=== PATIENT | female | born 1955 | race Caucasian/White ===

== ENCOUNTER 2017-04-27 17:33 | Emergency (ER) | payer BC, SELFPAY ==
[2017-04-27 17:35] VITALS: BP 190/109; PULSE 80; RESP 20; TEMP 35.8; O2SAT 98; BMI 45.9
--- NOTE | 2017-04-27 17:50 | CT_ITS ---
STUDY: CT BRAIN WITHOUT CONTRAST REASON FOR EXAM: Female, 61 years old. Headache RADIATION DOSAGE (If Supplied By Facility): CTDIvol = ( 44.99 ) mGy, DLP = ( 745.49 ) mGycm TECHNIQUE: Transaxial CT imaging of the brain was performed without administration of intravenous contrast material. Individualized dose optimization techniques were used for this CT. COMPARISON: None. FINDINGS: There is no acute bleed or infarct. There are normal white matter tracts. The ventricles are normal in configuration. There is no hydrocephalus. The visualized paranasal sinuses are clear. The mastoid air cells are well aerated. There is no skull fracture. CT/Brain/Head without Contrast IMPRESSION: No acute intracranial abnormality. Electronically Signed: Williams Curiel, at 18:45 EDT Tel , Service support ,
--- NOTE | 2017-04-27 17:57 | ED.DCSUM_ITS ---
- ER Visit Summary Date of Service: 04/27/17 Chief Complaint: Headache History of Present Illness: The patient is a 61 F Zentz to the emergency department with headache. The patient states that over the past 5 days, she has had a dull progressive pain. She states it started in the back of her neck. It was mostly in the trapezius muscles. Since then, it radiated up to the base of her skull. Over the past 2 days, it has involved both sides of her jaw. She saw her primary care today. It was thought that she may have TMJ. The patient was ordered muscle relaxers. She states she was on the way to the pharmacy to pick them up with her headache got worse. She describes a sharp stabbing pain at the top of her head that would come and go. She was also mildly nauseated. She denies any visual change. She denies any eye pain. She has had no pain with chewing. She denies any weight loss. She denies any other systemic symptoms. Physical Examination: Well-appearing patient is in no acute distress. Head is normocephalic, atraumatic. Pupils equal round reactive, extraocular muscles intact. There is no temporal artery tenderness. There is no vesicular rash. Neck supple. Kernig's and Brudzinski's are negative. Heart regular rate and rhythm. Lungs clear, chest nontender. Abdomen soft, nontender, nondistended. Neuro exam displays no focal or lateralizing deficit. 2+ symmetric lower extremity reflexes. No clonus. No ataxia or gait abnormality. Test Results: [] Emergency Department Course and Treatment: The patient has a benign neurologic examination. Her headache does seem more consistent with an occipital neuralgia given with the pain started in the radiation. She is not meningitic. She is not encephalopathic. However, she has never had headache like this I did obtain a head CT. This is unremarkable. The headache was not sudden onset. There was no thunderclap. It was gradual and progressive. I do not feel this represents subarachnoid. The patient was given Benadryl and Zofran. On reevaluation she is resting comfortably. At this time, due to the patient is safe for discharge. I will prescribe her antiemetics. She will take her prescribed antispasmodics. If she has worsening symptoms, she will return. Treatment Plan: [] Disposition: Discharge Impression: 1. Headache This note was generated with [employer] dictation software. It may contain incorrect words, spelling, and punctuation that were not noted in review of the chart prior to signing ED Disposition - Plan for ED Patient: Chief Complaint: Headache Instructions: ED Cephalgia Unspecified Prescriptions: Ondansetron [Zofran Odt] 4 mg PO Q8H PRN PRN #10 tab PRN Reason: Nausea Referrals: Edgar Lazo MD [Primary Care Provider] -
[2017-04-27] MEDS: DiphenhydrAMINE 50 MG/ML Syringe 25 MG IV (18:00)
[2017-04-27] MEDS: Ondansetron 4 MG/2 ML Vial IV (18:00)
[2017-04-27] MEDS: 0.9% Normal Saline 1,000 ML 150 ML IV (18:01)
[2017-04-27 19:26] VITALS: BP 136/90; PULSE 68; RESP 16; O2SAT 96
== END 2017-04-27 19:28 | disposition home or self-care (01) ==
PROVIDERS: Emergency Provider Emergency Medicine; Family Provider Family Medicine; PCP Family Medicine
DX: R51 Headache (principal); I10 Essential (primary) hypertension; E78.00 Pure hypercholesterolemia, unspecified; Z79.899 Other long term (current) drug therapy
CPT/HCPCS: 70450; 96361; 96374; 96375; 99283; J7030; J2405

== ENCOUNTER 2018-04-30 16:48 | Observation (INO) | payer BC, SELFPAY ==
[2018-03-07 15:45] VITALS: BMI 45.0
[2018-04-25 15:21] VITALS: BMI 45.0
--- NOTE | 2018-04-25 15:59 | EKG12_ITS ---
Test Reason : PRE OP Blood Pressure : / mmHG Vent. Rate : 073 BPM Atrial Rate : 073 BPM P-R Int : 158 ms QRS Dur : 090 ms QT Int : 388 ms P-R-T Axes : 060 -05 038 degrees QTc Int : 427 ms Normal sinus rhythm Normal ECG When compared with ECG of 23-MAR-2015 21:43, No significant change was found Confirmed by ESTELA EARL, SHANTEL ([id number]), content editor ALIYA HOLLINS ([id number]) on 04/29/2018 1:11:57 PM Referred By: Allen Evans Confirmed By:SHANTEL PALMER MD
[2018-04-25 17:12] LABS: Hematocrit 44.4 % (37-47); Hemoglobin 14.7 g/dl (12.0-15.0); Mean Corp Hgb Conc 33.1 g/gl (32-36); Mean Corpuscular Hgb 31.2 pg (27.0-32.0); Mean Corpuscular Volume 94.3 fL (81-99); Mean Platelet Vol. 9.7 fl (6.2-12.0); Platelet Count 248 K/mm3 (150-450); RBC Distribution Width CV 12.6 % (11.6-14.6); RBC Distribution Width SD 42.4 fl (35.1-43.9); Red Blood Count 4.71 M/mm3 (4.2-5.4); White Blood Count 7.6 K/mm3 (4.4-11.0)
[2018-04-25 17:13] LABS: Scan Indicated on CBC? Y/N NO
[2018-04-25 17:21] LABS: International Normalized Ratio 0.9; Prothrombin Time (Protime)PT. 12.1 SECONDS (11.7-14.9)
[2018-04-25 17:22] LABS: Partial Thromboplast Time 28.7 Seconds (24.1-36.2)
[2018-04-25 17:34] LABS: AST(SGOT) 20 U/L (15-37); Alanine Aminotransfer ALT/SGPT 29 U/L (13-56); Albumin, Serum 3.5 g/dL (3.2-5.0); Alkaline Phosphatase 117 U/L (45-117); Bilirubin, Direct 0.13 mg/dL (0.00-0.30); Globulin 3.3 g/dL (2.2-4.2); Protein, Total 6.8 g/dL (6.4-8.2)
--- NOTE | 2018-04-29 17:57 | HP.PCM_ITS ---
History and Physical Date of Admission: 04/30/18 HISTORY OF PRESENT ILLNESS 62 year old woman presents with complaints of bilateral macromastia as well as associated painful symptomatology of neck pain, thoracic back pain, bilateral shoulder pain from shoulder grooving from the weight of her breasts on her bra straps, and inframammary intertrigo for which she uses ointment for relief. She denies any trauma to her breasts. Denies any nipple discharge. She has seen a Chiropractor for her back pain in the past without symptomatic relief. Her last mammogram was in 11/22 and it showed scattered fibroglandular elements in both breasts. There were no significant masses, calcifications, or other findings are seen in either breast. She does have a family history of breast cancer. She is in a weight loss program where she has lost 12 lbs in the recent past without symptomatic relief. A letter was sent to her insurance carrier and medical approval has been obtained. Her surgery is scheduled for April 30, 2018. She presents at this time for a preop visit. PAST MEDICAL HISTORY Anxiety Arthritis Gallstones High cholesterol Seasonal allergies High blood pressure PAST SURGICAL HISTORY appendectomy section knee replacement procedure of left knee knee replacement procedure of right knee tonsillectomy ALLERGIES latex MYCINS MEDICATIONS Atorvastatin Calcium [Lipitor] Lisinopril/Hydrochlorothiazide [Lisinopril-Hctz 20-25 mg Tab] diltiazem CD Glucosam/Kelby-Msm1/C/Shorty/Bosw [Osteo Bi-Flex Caplet] L.acidoph,Paracasei, B.lactis [Probiotic] FAMILY HISTORY Aunt - Breast cancer, Diabetes Sister - Epilepsy, Skin cancer Mother - Hypertension, High cholesterol SOCIAL HISTORY Smoking Status: Never smoker alcohol intake: never substance use type: does not use REVIEW OF SYSTEMS General - Denies fever, fatigue, and weight loss. Eyes - Denies cataracts and glaucoma. ENT - Denies nasal congestion and sore throat. Endocrine - Denies excessive thirst and urination. Skin - Denies suspicious lesions and skin cancer. Musculoskeletal - Denies joint pain, weakness of muscles and joints, and arthritis. Has joint stiffness and neck pain and back pain. Her neck and back pain involve cervical and thoracic area. Neuro - Denies headaches. Cardiovascular - Denies chest pain, fatigue, and shortness of breath with exertion. Psych - Denies anxiety and depression. Respiratory - Denies chronic cough and shortness of breath. Gastrointestinal - Denies nausea, vomiting, diarrhea, and constipation. Hematologic - Denies abnormal bruising and bleeding. Genitourinary - Denies hematuria and urinary frequency. PHYSICAL EXAMINATION General - Alert and oriented. Patient's bra size is 46 DDD. HEENT - PERRL. EOMI. Throat is clear. Neck - Supple. No bony tenderness. There is some pericervical soft tissue tenderness. Lungs- Clear to auscultation. Heart - Regular rate and rhythm. Breasts - Patient has bilateral macromastia. No breast masses palpable. No axillary adenopathy noted. Distance from midclavicular line on the left to the nipple is 42 cm and from the nipple to the inframammary fold is 12 cm. Distance from midclavicular line on the right to the nipple is 42 cm and from nipple to the inframammary fold is 12 cm. Nipple areolar complex diameter is 9 cm bilaterally. No active inframammary intertrigo noted at this time. Abdomen - Soft and non distended. Back - No bony tenderness noted. There is perivertebral soft tissue tenderness in the upper thoracic area. Extremities - FROM. No axillary adenopathy. Radial pulses are palpable. There is some bilateral shoulder tenderness with shoulder grooving from the weight of her breasts on her bra straps. Neuro - CN II-XII grossly intact. Psych - Normal and mood and affect. ASSESSMENT 1. Bilateral macromastia. 2. Neck pain. 3. Thoracic back pain. 4. Bilateral shoulder pain from shoulder grooving from the weight of the breasts on her bra straps. 5. Inframammary intertrigo. 6. Recent weight loss. 7. Family history of breast cancer. PLAN Discussed with the patient the procedure of breast reduction mammoplasty. I feel this procedure would be beneficial in this patient as it would help relieve her painful symptomatology. She recently had a mammogram in 11/22 at the [facility] which was ok. I would remove approximately 750 g of breast tissue per side. We will send the tissue to pathology for analysis to rule out carcinoma. Discussed with patient the extent of scarring for this procedure. The biggest risk for wound healing problems is the T-zone area. Usually wound care and sometimes antibiotics are necessary for healing in this area. She would have drains in for a few days depending on the amount of tissue that is removed. She will be on antibiotics until the drains are removed. In general, the final breast size ranges from a high B to a low C cup. In this patient, due to her large size, it will be more in the range of a full C cup. Patient voices understanding. Surgery will be done under general anesthesia with a surgical observation overnight stay in the hospital. A letter was sent to her insurance carrier and medical approval has been obtained. Patient was informed of the risks and complications of the procedure including alternatives to surgery. These were discussed with her personally. She voices understanding and wishes to proceed. Some of the risks and complications were included in a form from the [employer]. Her questions were answered personally and to her satisfaction and her consent was signed. Her surgery is scheduled for April 30, 2018.
[2018-04-30] VITALS (15 sets, daily range): BP systolic 82–136; BP diastolic 54–91; PULSE 59–90; RESP 14–18; TEMP 35.7–36.9; O2SAT 92–98; BMI 43.3; BMI 42.5
--- NOTE | 2018-04-30 09:15 | BR_PTH ---
PATIENT: ALEKS RALPH LOC: MS3 U#:[id number] AGE/SX: 62/F [place] [facility] [place]: Dr. Allen Evans MD : [id number] BED: 1 DIS: 05/01/2018 SPEC #: [id number] RECD: 04/30/18 16:12 STATUS: FELY HICKEYJohn #: [id number] MALORIE: 04/30/18 09:[address]: Allen Evans DEPT: SURGICAL PATHOLOGY RECD BY: John Dixon ENTERED: 05/01/18 12:40 SP TYPE: MAMOPLASTY OTHR DR: Dr. Edgar Lazo MD Tissues: A - Right breast, NOS B - Left breast, NOS Procedures: Surgery Specimen Level IV HEADER OPERATION: Breast reduction mammoplasty PRE-OP DIAGNOSIS: Bilateral macromastia TISSUE SUBMITTED: A - Right breast tissue, B - Left breast tissue MICROSCOPIC DIAGNOSIS A. Right breast tissue, breast reduction mammoplasty: Benign breast tissue (1369 gm). Skin, no pathologic diagnosis. B. Left breast tissue, breast reduction mammoplasty: Benign breast tissue (1257 gm). Skin, no pathologic diagnosis. FADY:kindra 05/03/18 MICROSCOPIC DESCRIPTION Slides are reviewed. GROSS DESCRIPTION A - Received in fixative is one container labeled with the patient's name and designated right breast tissue. The specimen consists of multiple irregular fragments of fibroadipose tissue with a few of the pieces showing chaudhry-white skin weighing in aggregate 1369 gm and that in aggregate measure 26 x 26 x 8 cm. No skin lesion is identified. Sections reveal yellow adipose cut surfaces mixed with scant fibrous areas. Field Engineer sections are submitted in six cassettes. Cassette 1 also contains the skin. Sections will be submitted after overnight fixation. / FADY:kindra 05/01/18 B - Received in fixative is one container labeled with the patient's name and designated left breast tissue. The specimen consists of multiple irregular fragments of fibroadipose tissue with a few of the pieces showing chaudhry-white skin weighing in aggregate 1257 gm and that in aggregate measure 26 x 22 x 8 cm. No skin lesion is identified. Sections reveal yellow adipose cut surfaces mixed with scant fibrous areas. Field Engineer sections are submitted in six cassettes. Cassette 1 also contains the skin. Sections will be submitted after overnight fixation. / FADY:kindra 05/01/18 TC:5 CPT: 24446 x2
[2018-04-30] MEDS: Cefazolin 2 GM in 0.9% Normal Saline 100 ML IV (09:30)
--- NOTE | 2018-04-30 16:45 | OP.PCM_ITS ---
Report of Operation Date of Procedure: 04/30/18 Pre-Operative Diagnosis: 1. Bilateral macromastia. 2. Neck pain. 3. T horacic back pain. 4. Bilateral shoulder pain from shoulder grooving from the weight of the breasts on her bra straps. 5. Inframammary intertrigo. 6. Recent weight loss. 7. Family history of breast cancer. Post-Operative Diagnosis: Same. Surgery/Procedure Performed:: Bilateral breast reduction mammaplasty. Description of Surgical Findings:: 62 year old woman presents with complaints of bilateral macromastia as well as associated painful symptomatology of neck pain, thoracic back pain, bilateral shoulder pain from shoulder grooving from the weight of her breasts on her bra straps, and inframammary intertrigo for which she uses ointment for relief. She denies any trauma to her breasts. Denies any nipple discharge. She has seen a Chiropractor for her back pain in the past without symptomatic relief. Her last mammogram was in 11/22 and it showed scattered fibroglandular elements in both breasts. There were no significant masses, calcifications, or other findings are seen in either breast. She does have a family history of breast cancer. She is in a weight loss program where she has lost 12 lbs in the recent past without symptomatic relief. A letter was sent to her insurance carrier and medical approval has been obtained. Patient was informed of the risks and complications of the procedure including alternatives to surgery. These were discussed with the patient personally. Patient voices understanding and wishes to proceed. Some of the risks and complications were included in a form from the [employer]. IV Fluids - 3800 ml. Urine Output - 600 ml. Tissue removed from the left breast - 1188 grams. Tissue removed from the right breast - 1206 grams. I used Honey absorbable hemostat, (I used 4 vials, 2 in each breast). Reference Number - [id number]. Lot Number - [id number] Expiration - February 01, 2023, (2 vials in right breast). Reference Number - [id number]. Lot Number - [id number]. Expiration - September 01, 2022, (left breast). Reference Number - [id number]. Lot Number - [id number]. Expiration - November 02, 2022, (left breast). stitcher operator: Nikki Middleton. Type of Anesthesia:: General Specimen's removed: 1. Left breast tissue to Pathology. 2. Right breast tissue to Pathology. Drains: Douglas x2 (one in each breast). Estimated Blood Loss (mL): 250 ml. Fluids Replaced: 4400 ml (IV Fluids 3800 ml, Urine Output 600 ml). Description of Procedure: The patient was taken to the operating room and in the sitting position, preoperative markings were made. The sternum midline was marked down to the umbilicus. The inframammary folds were marked bilaterally. The midclavicular line was then marked down to the nipple, then from the nipple to the inframammary fold. The inframammary fold was then superimposed on the midclavicular line and I made a point 1 cm below that to be the new position of the nipple-areolar complex. 7 cm lines were then drawn divergent from that point to encompass the nipple-areolar complex. The distance between the divergent lines was 10 cm. The patient was then placed in the supine position and placed under general anesthesia and her breasts were prepped and draped in usual fashion. SCDs were placed for DVT prophylaxis. Perioperative antibiotics were given intravenously. A Page catheter was also placed. I then tattooed the preoperative markings with methylene blue and 25-gauge needle. I also tattooed the 12 o'clock position of the nipple-areolar complex to help with positioning of the nipple-areolar complex when it is brought through the keyhole incision at the end of the procedure to minimize kinking and twisting of the central breast mound pedicle. I then jan straight lines down from the lines drawn divergent around the nipple-areolar complex down to the inframammary fold. The width of the pedicle is 9 cm. I then used a 42 mm circular template for a new size of the nipple-areolar complex. The central markings were infiltrated with Xylocaine and epinephrine. The central skin was then deepithelialized. I started on the right side first and then went to the left side. I then mobilized medial and lateral breast flaps at the level of Susan's fascia down to within a centimeter of the chest wall. This was met in the midline of the breast with dissection at the level of Susan's fascia down to within a centimeter of the chest wall. Once the central breast mound pedicle was from the skin envelope, the reduction was then begun. Most of the tissue was removed from the superior aspect of the breast and the lateral aspect of the breast. I then sutured the leading edge of the medial and lateral breast flaps to the midline of the inframammary fold with 2-0 Vicryl suture. The vertical incision was approximated using surgical clips. The excess tissue from the medial and lateral breast flaps were excised and the horizontal incision was approximated using surgical clips. The patient was then placed in a sitting position. Using a vertical limb length of 5 cm, I jan the new position of the new nipple-areolar complexes on both breasts. They were in good position on the central aspect of the breast mound. Good symmetry was noted between the left breast and the right breast. Good shape and contour and projection was noted and appeared clinically to be a full C cup. The patient was then placed back in the supine position and the surgical clips were removed. The breast wounds were then irrigated with saline. Hemostasis was obtained using electrocautery. The tissue removed from the left breast was 1188 grams. The tissue removed from the right breast was 1206 grams. The tissue that was removed from the breasts was sent to Pathology for analysis to rule out carcinoma. After hemostasis was obtained using electrocautery, I then sprayed Honey absorbable hemostat into both breast wounds. I used two vials for each side. I then placed a size 15 Douglas drain into each breast wound to be brought through the lateral aspect of the horizontal incision. I then closed the breast wounds by first approximating the leading edge of the medial and lateral breast flaps to the midline of the inframammary fold with 2-0 Vicryl suture. The deep dermis and subcutaneous tissue of the vertical incision and the horizontal incisions were approximated using 3-0 Monocryl interrupted sutures. The horizontal incision was then approximated using 4-0 V-Loc unidirectional barbed running subcuticular suture. I also placed a few 4-0 Prolene vertical mattress interrupted sutures at the level of the Tzone. The vertical incision was then closed on the skin with 4-0 Prolene interrupted sutures. With a vertical limb length of 5 cm, I jan a circular incision where the nipple-areolar complex would be brought through this keyhole incision. Incisions were made and the nipple areolar complex was brought through the keyhole incision. The 12 o'clock position of the nipple-areolar complex was lined up with the 12 o'clock position of the breast skin. The nipple-areolar complex was secured to the breast skin using 3-0 Monocryl interrupted sutures for deep dermis and subcutaneous tissue. The skin was approximated using 4-0 Prolene simple interrupted sutures. This was then covered with Histoacryl skin tissue adhesive. I sutured the drain to the skin using 3-0 nylon suture. At the end of procedure, the breasts were soft with no evidence of vascular compromise. No evidence of hematomas were noted. The nipples were viable. I then dressed the breasts with a Kerlix gauze and a surgical bra. The patient tolerated the procedure well and will be sent to the recovery room in satisfactory condition. She will be admitted for surgical observation overnight stay. She will go home tomorrow once she is tolerating oral pain medication. I will remove the drains in a few days. She will be maintained on antibiotics until the drains are removed. She will keep her head elevated during the initial postoperative period. She will be maintained on a lifting restriction and keep her head elevated during the initial postoperative period. Postoperatively, she may get a compression sports bra as well. She will have the Page removed in the morning. She will be sent home on an tibiotics and pain medicine for a few days. Sutures will be removed in 1-2 weeks. Grafts/Implants Used: None. - Complications None. - Admit VTE Documentation VTE Present on Admission: No VTE Mechan Device Prophylaxis: SCD's VTE Pharm Prophylaxis ordered?: Yes Code Visit Surgery Charges CPT - 46153 ICD-10 - N62, M54.2, M54.6, M25.519, L30.4, Z80.3, R63.4 38112-21 N62, M54.2, M54.6, M25.519, L30.4, Z80.3, R63.4
[2018-04-30] MEDS: Lactated Ringers 500 ML 999 ML IV (18:40)
[2018-04-30] MEDS: Lactated Ringers 1,000 ML 100 ML IV (19:44)
[2018-04-30] MEDS: HYDROmorphone 1 MG/ML Syringe IV (20:10)
[2018-04-30] MEDS: Atorvastatin Calcium 10 MG Tablet PO (21:13)
[2018-04-30] MEDS: Docusate Sodium 100 MG Capsule PO (21:13)
[2018-04-30] MEDS: Cefazolin 1 GM/50 ML BAG IV (21:22)
--- NOTE | 2018-04-30 22:00 | NURSING ---
PT UP TO CHAIR. GAIT STEADY. PT GIVEN IS . ENCOURAGE TO USE EVERY HOUR.
[2018-05-01 02:40] VITALS: BP 101/62; PULSE 85; RESP 17; TEMP 36.7; O2SAT 95
[2018-05-01] MEDS: oxyCODONE 5 MG Tablet 10 MG PO (02:56)
[2018-05-01] MEDS: Cefazolin 1 GM/50 ML BAG IV ×2 (05:09→13:36)
[2018-05-01] MEDS: Enoxaparin 40 MG/0.4 ML Syringe SC (05:09)
[2018-05-01] MEDS: Lactated Ringers 1,000 ML 100 ML IV (05:12)
[2018-05-01 06:14] LABS: Hematocrit 36.6 % (37-47); Hemoglobin 11.6 g/dl (12.0-15.0); Mean Corp Hgb Conc 31.7 g/gl (32-36); Mean Corpuscular Volume 97.9 fL (81-99); Mean Platelet Vol. 9.6 fl (6.2-12.0); Platelet Count 245 K/mm3 (150-450); RBC Distribution Width CV 12.7 % (11.6-14.6); RBC Distribution Width SD 43.4 fl (35.1-43.9); Red Blood Count 3.74 M/mm3 (4.2-5.4); White Blood Count 18.2 K/mm3 (4.4-11.0)
[2018-05-01 06:19] LABS: Scan Indicated on CBC? Y/N NO
[2018-05-01 06:37] LABS: Anion Gap 7 (5-15); BUN 15 mg/dL (7-18); BUN/Creat Ratio 18.9 RATIO (10-20); Chloride 103 mmol/L (98-107); Creatinine, Serum 0.79 mg/dL (0.55-1.02); EST Glomerular Filtration Rate 79 mL/min (>60); Est Glom Filt Rate - Afr Amer 95 mL/min (>60); Estimated Creatinine Clearance 62.64 ml/min; Glucose 195 mg/dL (74-106); Potassium 3.7 mmol/L (3.5-5.1); Prealbumin 15.3 mg/dL (20.0-40.0); Sodium Level 139 mmol/L (136-145)
[2018-05-01 08:11] VITALS: BP 111/59; PULSE 88; RESP 14; TEMP 36.6; O2SAT 94
[2018-05-01 08:45] VITALS: RESP 14; O2SAT 94
[2018-05-01] MEDS: dilTIAZem CD 180 MG Capsule PO (09:53)
[2018-05-01] MEDS: Docusate Sodium 100 MG Capsule PO (09:53)
[2018-05-01] MEDS: hydroCHLOROthiazide 25 MG Tablet PO (09:53)
[2018-05-01] MEDS: Lisinopril 20 MG Tablet PO (09:53)
[2018-05-01] MEDS: Acetaminophen 325 MG Tablet 650 MG PO (09:57)
--- NOTE | 2018-05-01 13:37 | PCM.PN.SRG ---
Subjective: Postop #1 Patient is resting comfortably. - Physical Exam General: Alert, Oriented x3 HEENT: PERRLA, EOMI Oral: Moist Mucosa Neck: Supple Lungs: Clear to auscultation Cardiovascular: Regular rate, Regular Rhythm Abdomen: Soft, Non-Distended Skin: Incision - Breast incisions dry and intact. Breasts are soft and symmetrical. Nipples are viable. No clinical evidence of hematoma. Neurological: Cranial nerves II-XII grossly intact Psych/Mental Status: Normal Affect, Appropriate Vital Signs Temp Pulse Resp BP Pulse Ox 97.8 F 88 14 111/59 L 94 05/01/18 08:11 05/01/18 08:11 05/01/18 08:45 05/01/18 08:11 05/01/18 08:45 Oxygen Flow Rate (L/min) 2 Oxygen Delivery Method Room Air Weight: 240 lb Body Mass Index (BMI) 42.5 Intake and Output for Last 24 Hours 04/29/18 04/30/18 05/01/18 23:59 23:59 23:59 Intake Total 4900 / 4900 4215 / 4215 Output Total 690 / 690 2260 / 2260 Balance 4210 / 4210 5 / 1954 Drainage 30 ml yesterday, 110 ml today. Laboratory Tests Past 24 Hrs 05/01/18 05/01/18 05:15 05:15 WBC 18.2 H RBC 3.74 L Hgb 11.6 L Hct 36.6 L MCV 97.9 MCH 31.0 MCHC 31.7 L RDW 12.7 RDW Differential 43.4 Plt Count 245 MPV 9.6 Sodium 139 Potassium 3.7 Chloride 103 Carbon Dioxide 29.0 Anion Gap 7 BUN 15 Creatinine 0.79 Estim Creat Clear Calc 62.64 Est GFR (MDRD) Af Amer 95 Est GFR (MDRD) Non-Af 79 BUN/Creatinine Ratio 18.9 Glucose 195 H Calcium 8.0 L Prealbumin 15.3 L Medical Necessity - Tobacco Use Smoking Status: Never smoker Tobacco Use: Non-smoker Assessment/Plan All Active Problems (Last Updated 02/12/18 @ 08:57 by Alina Adams) Recent weight loss (Acute) 1. Bilateral macromastia. 2. Neck pain. 3. Thoracic back pain. 4. Bilateral shoulder pain from shoulder grooving from the weight of the breasts on her bra straps. 5. Inframammary intertrigo. 6. Recent weight loss. 7. Family history of breast cancer. 8. s/p bilateral breast reduction mammaplasty. Patient is resting comfortably. She is tolerating po analgesia. Breast incisions are dry and intact. Breasts are soft and symmetrical. Nipples are viable. No clinical evidence of hematoma. WBC was 18.2. Probably surgery related. She is afebrile. The surgical site shows no evidence of infection. She has no breathing complaints and no voiding complaints. Will repeat the CBC in a week as an outpatient. Prealbumin was 15.3. Encourage nutritional supplementation with protein to help the healing process. Discharge home today. Continue head elevation and lifting restriction. Will remove the drains in the office. Wrote script for Cefadroxil until the drains are removed. Wrote script for Percocet for pain (50 tabs). Wrote script for Colace for constipation (30 tabs). Followup office Sunday05/06/18.
--- NOTE | 2018-05-01 14:03 | DCINST_ITS ---
You will use the following diet at home:: No restrictions Discharge Activity: May not drive while taking narcotic pain medications., May Shower - after the drains are removed., - - keep head elevated. no heavy lifting. May shower in (days): 5 - after the drains are removed. May resume sexual activity in: 10-14 days Weight Bearing Status: Weight bearing as tolerated Lifting Restrictions: 20 lbs. Keep extremity elevated above heart level: - - elevate head. Call your doctor if your incision/area has: Continuous Slow Oozing, Sudden Increased Bleeding, Increased Pain/ Swelling, Increased Redness, Foul Smelling Discharge, Swelling at the incision site, - - black nipples. Call your doctor if you observe: Fever of 101 or Higher, Coldness, Increased Pain, Shortness of breath, Chest pain, Calf discomfort, Uncontrolled pain Suture Line Care: - - dry dressnigs daily. Change Dressing in (Days):: 1 - dry dressings daily. Cleanse incision/area with: - - patient may take a shower after her drains are removed. Drain: Suction - gracie drain x2 to bulb suction. empty and record output daily. Allergies/Adverse Reactions: Allergies latex Allergy (Mild, Verified 04/25/18 15:19) ALLERGY MYCINS Adverse Reaction (Uncoded 04/25/18 15:19) Other YEAST INFECTIONS Medications to take at Discharge Atorvastatin Calcium [Lipitor] 10 mg PO QHS 03/23/15 Lisinopril/Hydrochlorothiazide [Lisinopril-Hctz 20-25 mg Tab] 1 tab PO DAILY 03/23/15 diltiazem CD 180 mg capsule,extended release 24 hr 180 mg PO DAILY 02/12/18 Glucosam/Kelby-Msm1/C/Shorty/Bosw [Osteo Bi-Flex Caplet] 1 each PO DAILY 04/23/18 L.acidoph,Paracasei, B.lactis [Probiotic] 1 each PO DAILY 04/23/18 Cefadroxil [Duricef] 500 mg PO BID #10 cap 05/01/18 Docusate Sodium [Colace] 100 mg PO BID #30 cap 05/01/18 Hydrochlorothiazide [Hctz] 25 mg PO DAILY tablet 05/01/18 Lisinopril [Zestril] 20 mg PO DAILY tablet 05/01/18 Oxycodone HCl/Acetaminophen [Percocet 5/325] 1 - 2 tab PO 4X/DAY PRN PRN 7 Days #50 tab 05/01/18 The following prescriptions were given: Oxycodone HCl/Acetaminophen [Percocet 5/325] 1 - 2 tab PO 4X/DAY PRN PRN 7 Days #50 tab PRN Reason: Pain Cefadroxil [Duricef] 500 mg PO BID #10 cap Docusate Sodium [Colace] 100 mg PO BID #30 cap Orders to be completed after discharge: 12 Lead EKG [CVS] Time Frame: 04/23/18, Facility: [facility], Location: Cardiovascular Services Partial Thromboplast Time Time Frame: 04/23/18, Location: Laboratory CBC-Complete Blood Cnt No Diff Time Frame: 1 Week, Facility: [facility], Location: [facility] Building CBC-Complete Blood Cnt No Diff Time Frame: 04/23/18, Location: Laboratory Liver Profile Time Frame: 04/23/18, Location: Laboratory Prothrombin Time w/INR Time Frame: 04/23/18, Location: Laboratory Primary Care Physician: Edgar Lazo MD [Primary Care Provider] - Test Results: Test results from this visit will be discussed in further detail at your follow- up appointment, if applicable. Please Follow Up With: Allen Evans MD When: sunday05/06/18. call [phone] for appt. Proposed Discharge Date: 05/01/18
[2018-05-01 14:18] VITALS: BP 93/52; PULSE 94; RESP 14; TEMP 36.6; O2SAT 96
[2018-05-01 17:17] VITALS: BP 93/52; PULSE 94; RESP 14; TEMP 36.6; O2SAT 96
== END 2018-05-01 17:24 | disposition home or self-care (01) ==
LOC: SDC 20:21
PROVIDERS: Admitting Provider Surgery; Family Provider Family Medicine; PCP Family Medicine; Referring Provider Surgery; Visit Provider Surgery
PROC: 0H0U0ZZ Alteration of Left Breast, Open Approach (ICD-10-PCS; CPT 19318; principal; 2018-04-30 09:00)
DX: N62 Hypertrophy of breast (principal); M54.2 Cervicalgia; M54.6 Pain in thoracic spine; M25.512 Pain in left shoulder; M25.511 Pain in right shoulder; L30.4 Erythema intertrigo; Z80.3 Family history of malignant neoplasm of breast; E78.00 Pure hypercholesterolemia, unspecified; Z79.899 Other long term (current) drug therapy; I10 Essential (primary) hypertension; M19.90 Unspecified osteoarthritis, unspecified site
CPT/HCPCS: 19318; 36415; 80048; 80076; 84134; 85027; 85610; 85730; 88305; 93005; 96361; 96365; 96366; 96372; 96375; 99218; J7120; G0378; G0379; J2405; Q9968

== ENCOUNTER → 2018-05-27 | Outpatient (CLI) | payer BC, SELFPAY ==
[2018-05-27 15:32] VITALS: BMI 42.5
== END | disposition home or self-care (01) ==
PROVIDERS: Family Provider Family Medicine; PCP Family Medicine; Referring Provider Nurse Practitioner Family; Visit Provider Nurse Practitioner Family
DX: T81.89XA Other complications of procedures, not elsewhere classified, initial encounter (principal)
CPT/HCPCS: 87070; 87077; 87186; 87205

== ENCOUNTER → 2018-07-12 | Outpatient (CLI) | payer BC, SELFPAY ==
[2018-07-12 08:22] VITALS: BMI 42.5
--- NOTE | 2018-07-12 08:40 | HEM_PTH ---
PATIENT: ALEKS RALPH LOC: [facility] U#:[id number] AGE/SX: 62/F ROOM: RE07/12/[address]: Dr. Brunilda Syed MD : 1955 BED: DIS: 07/12/2018 SPEC #: [id number] RECD: 07/12/18 10:11 STATUS: FELY REJohn #: [id number] MALORIE: 07/12/18 08:[address]: Burnilda Syed DEPT: SURGICAL PATHOLOGY RECD BY: Joy Vail ENTERED: 07/12/18 14:03 SP TYPE: HEMORRHOID OTHR DR: Dr. Edgar Lazo MD Tissues: HEMORRHOIDS Procedures: Surgery Specimen Level IV HEADER OPERATION: Excision of hemorrhoid PRE-OP DIAGNOSIS: Thrombosed hemorrhoid TISSUE SUBMITTED: Hemorrhoid/rectal tissue MICROSCOPIC DIAGNOSIS Hemorrhoidal tissue: Granulation with associated acute and chronic inflammation and organizing hematoma. See comment. AM:kindra 07/15/18 COMMENT Glandular mucosa is not present in the specimen. Clinical correlation is suggested. Case has been reviewed in consultation with Dr. No who concurs with the above diagnosis. IDC:FADY MICROSCOPIC DESCRIPTION Slides are reviewed. GROSS DESCRIPTION Received in fixative is one container labeled with the patient's name and designated rectal tissue. The specimen consists of a polypoid piece of chaudhry-pink congested soft tissue measuring 0.5 x 0.5 x 0.3 cm. The specimen is bisected and submitted entirely in one cassette. / FADY:kindra 07/12/18 TC:5 CPT: 24625
== END | disposition home or self-care (01) ==
LOC: LABSPEC 11:05
PROVIDERS: Family Provider Family Medicine; PCP Family Medicine; Referring Provider Surgery; Visit Provider Surgery
DX: K64.5 Perianal venous thrombosis (principal)
CPT/HCPCS: 88304; 88305

== ENCOUNTER 2019-02-07 07:48 | Emergency (ER) | payer BC, SELFPAY ==
[2018-07-12 08:22] VITALS: BMI 42.5
[2019-02-07 07:49] VITALS: BP 134/79; PULSE 76; RESP 12; TEMP 36.7; O2SAT 94; BMI 40.7
--- NOTE | 2019-02-07 08:07 | EKG12_ITS ---
Test Reason : SYNCOPE Blood Pressure : / mmHG Vent. Rate : 069 BPM Atrial Rate : 069 BPM P-R Int : 158 ms QRS Dur : 090 ms QT Int : 390 ms P-R-T Axes : 013 -15 004 degrees QTc Int : 417 ms Normal sinus rhythm Moderate voltage criteria for LVH, may be normal variant Possible Lateral infarct , age undetermined Abnormal ECG Confirmed by ESTELA EARL, SHANTEL ([id number]), news copy editor ALIYA HOLLINS ([id number]) on 02/11/2019 9:04:20 AM Referred By: ALYSSA
--- NOTE | 2019-02-07 08:07 | CT_ITS ---
STUDY: CT ABDOMEN AND PELVIS WITHOUT CONTRAST REASON FOR EXAM: Female, 63 years old. Mid and lower abdomen pain, syncope. Hx hypertension, appendectomy, cholecystectomy. RADIATION DOSAGE (If Supplied By Facility): CTDIvol = ( 20.52 ) mGy, DLP = ( 1102.41 ) mGycm TECHNIQUE: Transaxial images were obtained from the dome of the diaphragm to the symphysis pubis without oral contrast, and without intravenous contrast. Sagittal and coronal images were reconstructed. Individualized dose optimization techniques were used for this CT. COMPARISON: None. FINDINGS: The visualized lung bases are unremarkable. The visualized portions of the heart are within normal limits. Curvilinear area of decreased attenuation within the posterior segment the right lobe of the liver felt to represent a portal vein varix/AV fistula. There is non-visualization of the gallbladder, which may be secondary to either contraction or a prior cholecystectomy. Normal spleen. Normal pancreas. Normal bilateral adrenal glands. Normal right kidney. Normal left kidney. Normal visualized stomach. Normal small intestine. Normal colon. The appendix is visualized and appears normal. Normal abdominal aorta. Normal inferior vena cava. Normal retroperitoneum. Normal urinary bladder. Normal abdominal wall. Normal osseous structures. 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 No acute abnormality. Electronically Signed: Zeus Grimm MD at 11:00 EST Tel , Service support ,
--- NOTE | 2019-02-07 08:08 | ED.DCSUM_ITS ---
History of Present Illness Chief Complaint: Abd Pain Informant: Patient Onset: Today Current Severity: Mild Maximum Severity: Moderate Narrative: Patient presents with lower abdominal cramping and syncopal episode. She states that she felt well this morning. She ate breakfast, took her medications, and drove to work without difficulty. After arriving at work she developed lower abdominal cramping. She felt lightheaded, clammy, sweaty. She went to the restroom. She states the last thing she remembers is sitting on the commode, then woke up on the floor. Her glasses were reportedly bent. She has mild contusion to the right side of her face. She continues to have some mild lower abdominal cramping. She denies vomiting but did feel nauseated. She denies diarrhea. - Past Medical History (1) Anxiety Status: Chronic (2) High cholesterol Status: Chronic (3) History of appendectomy Status: Chronic (4) History of section Status: Chronic (5) History of knee replacement procedure of left knee Status: Chronic (6) History of knee replacement procedure of right knee Status: Chronic (7) History of tonsillectomy Status: Chronic (8) Hx of cholecystectomy Status: Chronic (9) Chronic cervical pain Status: Chronic (10) Chronic thoracic back pain Status: Chronic (11) High blood pressure Status: Chronic Past Medical History - Allergies and Home Meds Allergies/Adverse Reactions: Allergies latex Allergy (Mild, Verified 02/07/19 07:53) ALLERGY MYCINS Adverse Reaction (Uncoded 02/07/19 07:53) Other YEAST INFECTIONS Primary Care Physician: Zhanna Trujillo MD [Primary Care Provider] - Smoking Status: Never smoker Review of Systems General: Denies: Chills, Fever Eyes: Denies: Visual changes - bilaterally ENT: Denies: Bilateral ear pain Cardiovascular: Denies: Chest pain, Palpitations Respiratory: Denies: Dyspnea, Cough Gastrointestinal: Reports: Abdominal pain, Nausea. Denies: Vomiting, Diarrhea Genitourinary: Denies: Dysuria Musculoskeletal: Denies: Extremity Pain Skin: Denies: Rash Neurological: Denies: Headache Allergy: Denies: Uticaria Physical Exam Vital Signs/Narrative: Vital Signs Temp Pulse Resp BP Pulse Ox 02/07/19 07:49 98.0 F 76 12 134/79 H 94 Inital Vital Signs reviewed: Yes General: Well nourished, Well developed Head: Normocephalic ENT: Moist mucous membranes Neck: Supple Cardiovascular: Regular rate, Regular rhythm Respiratory: No distress, CTA bilaterally Abdomen: Soft, Normal bowel sounds, Tender - Mild lower abdominal tenderness to palpation.. 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 No acute abnormality. Electronically Signed: Zeus Grimm MD at 11:00 EST Tel , Service support , 02/07/19 08:07 Abdomen/Pelvis without Cont [CT] Stat Laboratory Results 02/07/19 02/07/19 02/07/19 08:00 08:00 08:40 WBC 6.2 RBC 4.65 Hgb 14.8 Hct 44.1 MCV 94.8 MCH 31.8 MCHC 33.6 RDW Std Deviation 43.3 RDW Coeff of Yoan 12.5 Plt Count 226 MPV 9.1 Immature Gran % (Auto) 0.500 Neut % (Auto) 57.8 Lymph % (Auto) 24.7 [place] % (Auto) 8.4 Eos % (Auto) 7.6 H Baso % (Auto) 1.0 Absolute Neuts (auto) 3.6 Absolute Lymphs (auto) 1.53 Nucleated RBC % 0 Sodium 143 Potassium 3.5 Chloride 109 H Carbon Dioxide 28.0 Anion Gap 6 BUN 12 Creatinine 0.88 Estim Creat Clear Calc 55.53 Est GFR (MDRD) Af Amer 84 Est GFR (MDRD) Non-Af 69 BUN/Creatinine Ratio 13.6 Glucose 148 H Calcium 9.1 Urine Color Yellow Urine Clarity Sl Cldy Urine pH 7.0 Ur Specific Downing 1.010 Urine Protein 30 H Urine Glucose (UA) NEGATIVE Urine Ketones Negative Urine Occult Blood Negative Urine Nitrite Negative Urine Bilirubin Negative Urine Urobilinogen Normal Ur Leukocyte Esterase Negative Urine RBC 0 SEEN Urine WBC 0 SEEN Ur Squamous Epith Cells 0-5 SEEN Urine Bacteria 0 SEEN Urine Mucus 0 SEEN - Medical Decision Making Patient was initially given morphine, Zofran, and IV fluids followed by a dose of Bentyl. Patient states she did start having diarrhea while here in the emergency room. Stool throughout the colon is noted on CAT scan. No other significant findings. I suspect patient has viral gastroenteritis and her syncopal episode was vasovagal. Patient has had no ectopy on electronic device monitor while here in the emergency room. ED Disposition - Plan for ED Patient: Disposition: Home or Assisted Living Diagnosis: Gastroenteritis, Vasovagal syncope Instructions: GASTROENTERITIS, Viral (6y-Adult), SYNCOPE, Vasovagal Referrals: Zhanna Trujillo MD [Primary Care Provider] - 3-5 Days if not improving
[2019-02-07 08:21] LABS: Anion Gap 6 (5-15); BUN 12 mg/dL (7-18); BUN/Creat Ratio 13.6 RATIO (10-20); Calcium,Total 9.1 mg/dL (8.5-10.1); Chloride 109 mmol/L (98-107); Creatinine, Serum 0.88 mg/dL (0.55-1.02); EST Glomerular Filtration Rate 69 mL/min (>60); Est Glom Filt Rate - Afr Amer 84 mL/min (>60); Estimated Creatinine Clearance 55.53 ml/min; Glucose 148 mg/dL (74-106); Potassium 3.5 mmol/L (3.5-5.1); Sodium Level 143 mmol/L (136-145)
[2019-02-07 08:24] LABS: Absolute Lymphocyte Count 1.53 X10^3/uL (0.83-4.51); Absolute Neutrophil Count 3.6 X10^3/uL (2.0-7.7); Basophil# 0.06 X10^3/uL; Eosinophil# 0.47 X10^3/uL; Eosinophils% 7.6 % (0-5); Hematocrit 44.1 % (37-47); Hemoglobin 14.8 g/dL (12.0-15.0); Lymphocyte # 1.53 X10^3/ul (4.0); Lymphocyte % 24.7 % (19-41); Mean Corp Hgb Conc 33.6 g/dL (32-36); Mean Corpuscular Hgb 31.8 pg (27.0-32.0); Mean Corpuscular Volume 94.8 fL (81-99); Mean Platelet Vol. 9.1 fl (6.2-12.0); Monocyte# 0.52 X10^3/uL; Monocyte% 8.4 % (0-10); NRBC Flagged by Analyzer 0 % (0-5); Neutrophil # 3.59 X10^3/uL (2.7-7.7); Neutrophil % 57.8 % (47-70); Platelet Count 226 K/mm3 (150-450); RBC Distribution Width CV 12.5 % (11.6-14.6); RBC Distribution Width SD 43.3 fl (35.1-43.9); Red Blood Count 4.65 M/mm3 (4.2-5.4); White Blood Count 6.2 K/mm3 (4.4-11.0)
[2019-02-07] MEDS: 0.9% Normal Saline 1,000 ML 150 ML IV (08:24)
[2019-02-07] MEDS: Morphine 4 MG/ML Syringe IV (08:25)
[2019-02-07] MEDS: Ondansetron 4 MG/2 ML Vial IV (08:25)
[2019-02-07 09:44] LABS: Bacteria 0 SEEN /hpf (None Seen); Mucous, Urine 0 SEEN /hpf (<or=2+); Red Blood Cells-Urine 0 SEEN /hpf (0-5); White Blood Cells 0 SEEN /hpf (0-5)
[2019-02-07 09:52] VITALS: BP 144/80; PULSE 74; RESP 18; O2SAT 94
[2019-02-07] MEDS: Dicyclomine 20 MG/2 ML Vial IM (09:56)
[2019-02-07 10:14] LABS: Color, Urine Yellow (Yellow); Glucose, Dipstick NEGATIVE (Normal); Urine Bilirubin Dipstick Negative (Negative); Urine Clarity Sl Cldy (Clear)
[2019-02-07 10:15] LABS: Ketone-Dipstick Negative (Negative); Leukocyte Esterase-Dipstick Negative /ul (Negative); Nitrite-Dipstick Negative (Negative); Occult Blood-Urine Negative /ul (Negative); Protein-Dipstick 30 mg/dl (Negative); Urine Urobilinogen Normal (Normal)
[2019-02-07 10:16] LABS: Squamous Epithelial Cells - UA 0-5 SEEN /hpf (5-10)
== END 2019-02-07 11:23 | disposition home or self-care (01) ==
PROVIDERS: Emergency Provider Emergency Medicine; Family Provider Family Medicine; PCP Family Medicine
DX: R55 Syncope and collapse (principal); K52.9 Noninfective gastroenteritis and colitis, unspecified; F41.9 Anxiety disorder, unspecified; E78.00 Pure hypercholesterolemia, unspecified; I10 Essential (primary) hypertension; Z79.899 Other long term (current) drug therapy
CPT/HCPCS: 74176; 80048; 81001; 85025; 93005; 96361; 96372; 96374; 96375; 99285; J7030; A4216; J2405

== ENCOUNTER → 2019-03-21 | Outpatient (CLI) | payer BC, SELFPAY ==
[2019-03-21 15:37] LABS: Absolute Lymphocyte Count 1.36 X10^3/uL (0.83-4.51); Absolute Neutrophil Count 2.7 X10^3/uL (2.0-7.7); Basophil# 0.03 X10^3/uL; Basophil% 0.6 % (0-1); Eosinophil# 0.17 X10^3/uL; Eosinophils% 3.6 % (0-5); Hematocrit 43.4 % (37-47); Hemoglobin 14.4 g/dL (12.0-15.0); Lymphocyte # 1.36 X10^3/ul (4.0); Lymphocyte % 28.6 % (19-41); Mean Corp Hgb Conc 33.2 g/dL (32-36); Mean Corpuscular Hgb 31.4 pg (27.0-32.0); Mean Corpuscular Volume 94.8 fL (81-99); Mean Platelet Vol. 9.3 fl (6.2-12.0); Monocyte# 0.49 X10^3/uL; Monocyte% 10.3 % (0-10); NRBC Flagged by Analyzer 0 % (0-5); Neutrophil # 2.68 X10^3/uL (2.7-7.7); Neutrophil % 56.5 % (47-70); Platelet Count 191 K/mm3 (150-450); RBC Distribution Width CV 12.5 % (11.6-14.6); RBC Distribution Width SD 43.2 fl (35.1-43.9); Red Blood Count 4.58 M/mm3 (4.2-5.4); White Blood Count 4.8 K/mm3 (4.4-11.0)
[2019-03-21 15:51] LABS: AST(SGOT) 36 U/L (15-37); Alanine Aminotransfer ALT/SGPT 41 U/L (13-56); Albumin, Serum 3.6 g/dL (3.2-5.0); Alkaline Phosphatase 109 U/L (45-117); Anion Gap 4 (5-15); BUN 11 mg/dL (7-18); BUN/Creat Ratio 17.7 RATIO (10-20); Calcium,Total 8.6 mg/dL (8.5-10.1); Chloride 105 mmol/L (98-107); Creatinine, Serum 0.62 mg/dL (0.55-1.02); EST Glomerular Filtration Rate 104 mL/min (>60); Est Glom Filt Rate - Afr Amer 126 mL/min (>60); Globulin 3.5 g/dL (2.2-4.2); Glucose 95 mg/dL (74-106); Potassium 3.1 mmol/L (3.5-5.1); Protein, Total 7.1 g/dL (6.4-8.2); Sodium Level 140 mmol/L (136-145)
== END | disposition home or self-care (01) ==
LOC: MTLAB 14:13
PROVIDERS: PCP Family Medicine; Referring Provider Family Medicine; Visit Provider Family Medicine
DX: R19.7 Diarrhea, unspecified (principal)
CPT/HCPCS: 36415; 80053; 85025

== ENCOUNTER → 2019-03-24 | Outpatient (CLI) | payer BC, SELFPAY | END | disposition home or self-care (01) | LOC: LABSPEC 03-25 07:16 | PROVIDERS: PCP Family Medicine; Referring Provider Family Medicine; Visit Provider Family Medicine | DX: R19.7 Diarrhea, unspecified (principal) | CPT/HCPCS: 87493; 87506 ==

== ENCOUNTER → 2019-04-11 | Outpatient (CLI) | payer BC, SELFPAY ==
[2019-04-11 17:35] LABS: Anion Gap 3 (5-15); BUN 16 mg/dL (7-18); BUN/Creat Ratio 24.6 RATIO (10-20); Calcium,Total 8.8 mg/dL (8.5-10.1); Chloride 108 mmol/L (98-107); Creatinine, Serum 0.65 mg/dL (0.55-1.02); EST Glomerular Filtration Rate 98 mL/min (>60); Est Glom Filt Rate - Afr Amer 119 mL/min (>60); Glucose 94 mg/dL (74-106); Potassium 3.4 mmol/L (3.5-5.1); Sodium Level 142 mmol/L (136-145)
== END | disposition home or self-care (01) ==
LOC: MFPLAB 16:08
PROVIDERS: PCP Family Medicine; Referring Provider Family Medicine; Visit Provider Family Medicine
DX: E87.6 Hypokalemia (principal)
CPT/HCPCS: 36415; 80048

== ENCOUNTER → 2019-06-24 14:40 | Outpatient (CLI) | payer BC, SELFPAY ==
--- NOTE | 2019-06-24 14:43 | RAD_ITS ---
STUDY: X-RAY - LEFT CALCANEUS REASON FOR EXAM: Female, 63 years old. Chronic left heel pain TECHNIQUE: 2 view(s) of the calcaneus were obtained. COMPARISON: None. FINDINGS: Normal density of the visualized calcaneus. There is a plantar calcaneal spur. There is no demonstrated destructive osseous lesion or acute fracture. RAD/Calcaneus min 2 Views IMPRESSION: Plantar calcaneal spur, otherwise normal x-ray examination of the left calcaneus. Electronically Signed: Jose Mcclure MD at 14:55 EDT , Service support ,
== END ==
PROVIDERS: PCP Family Medicine; Referring Provider Family Medicine; Visit Provider Family Medicine
DX: M79.672 Pain in left foot (principal)
CPT/HCPCS: 73650

== ENCOUNTER 2019-07-24 07:49 | Day surgery (SDC) | payer BC, SELFPAY ==
--- NOTE | 2019-07-09 08:28 | PCM.HP.BLA ---
History and Physical Date of Admission: 07/24/19 Nasra Martinez Physician Specialty: RECEIVING WORKER H&P Signed Encounter Date: 07/04/2019 Expand All Collapse All Hide copied text Seth for details Crystal Matthew is a 63 year old female who presents for Persistent PMB. Had in office endosee which revealed mass on posteiror aspect as well as tissue density in right cornua. Recommendation to proceed with Hysteroscopy, D&C with Symphion. ? PAST MEDICAL HISTORY PAST MEDICAL HISTORY Diagnosis Date ? Cystocele, midline ? ? Essential hypertension, benign ? ? Uterovaginal prolapse, incomplete ? PAST SURGICAL HISTORY PAST SURGICAL HISTORY Procedure Laterality Date ? APPENDECTOMY ? ? ? DELIVERY ONLY ? ? ? COLONOSCOP W/ OR W/O [facility] SPEC ? 08/30/2009 ? Colonoscopy ? D&C, DIAG AND/OR THERAPEUTIC ? ? ? Dilation & curettage ? D&C, DIAG AND/OR THERAPEUTIC ? ? ? Dilation & curettage ? D&C, DIAG AND/OR THERAPEUTIC ? ? ? Dilation & curettage ? HYSTEROSCOPY ? 05/20/2013 ? KNEE SCOPE,DIAGNOSTIC ? ? ? right knee ? LAPAROSCOPIC POLYPECTOMY ? 05/20/2013 ? LIGATE FALLOPIAN TUBE ? 04/1990 ? PAST SURGICAL HISTORY OF ? 04/12 ? right knee replacement ? PAST SURGICAL HISTORY OF ? - ? left total knee replacment ? REDUCTION OF LARGE BREAST ? 04/2018 ? Breast reduction ? REMOVAL GALLBLADDER ? 11/08 ? Cholecystectomy ? REMOVAL OF TONSILS,<12 Y/O ? ? FAMILY HISTORY FAMILY HISTORY Problem Relation Age of Onset ? Cancer Father ? ? brain has since passed. ? Hypertension Mother ? ? Lipids Mother ? ? No Known Problems Sister ? ? No Known Problems Sister ? ? No Known Problems Brother ? ? Stroke Maternal Grandfather ? ? No Known Problems Son ? ? Cancer Maternal Aunt ? ? breast ? Cancer Maternal Aunt ? ? breast ? Diabetes Maternal Aunt ? ? other (parkinsons) Brother ? SOCIAL HISTORY Social History ? Tobacco Use ? Smoking status: Never Smoker ? Smokeless tobacco: Never Used Substance Use Topics ? Alcohol use: No ? Drug use: No CURRENT MEDICATIONS Current Outpatient Medications Medication Sig ? lactobacillus combination no.8 (ADULT PROBIOTIC ORAL) Take by mouth. ? CARTIA XT 180 mg 24 hr capsule Take 180 mg by mouth once daily. ? atorvastatin (LIPITOR) 10 mg tablet ? ? multivitamin (DAILY VITAMIN) ORAL tablet Take one(1) tablet daily. ? lisinopril(PRINIVIL 20 MG TAB) 25 mg daily ? ibuprofen (MOTRIN) 600 mg tablet Take 1 tablet by mouth every 6 hours as needed. ? No current facility-administered medications for this visit. Allergies As of Date: 07/04/2019 Allergen Noted Reaction LATEX 03/05/2008 Rash ERYTHROMYCIN 01/12/2005 Intolerance ? Fully Assessed 07/04/2019 ? REVIEW OF SYSTEMS Abdomen: no pain Bladder: no dysuria.. Allergies and current medication updated:No ? EXAM: BP 122/82 Wt 229 lb (103.9kg) LMP 04/11/2010 GENERAL: pleasant, female in no apparent distress HEENT: Normocephalic and atraumatic NECK: full range of motion DERMATOLOGY: Normal, without lesions, non-icteric and non-hirsute ? PELVIC: external genitalia normal, normal Bartholin's glands, urethra, Hepler's glands, no vulvar lesions, good vaginal support NEURO: alert and oriented x3,exam grossly non-focal EXTREMITIES: normal ? ASSESSMENT AND PLAN: ? 63yo with Persistent PMB, Endometrial mass ? 1) Hysteroscopy, D&C with polypectomy 2) Pt has been counseled on risks/benefits and alternatives of surgery including but not limited to anesthesia, bleeding, infection, uterine perforation with subsequent injury to pelvic structures including bowel, bladder, ureters and vessels. Pt wishes to proceed with surgery at this time. 3) consent signed ? Nasra Kovacs MD ? Procedure Criteria Procedure Type: Elective COVID Risk Discussion: The surgeon/proceduralist and patient have discussed in detail the risk of exposure to and/or potential harm posed by the COVID-19 virus with having a surgery/procedure at this time versus the risk of delaying the surgery/procedure. It is not possible to know either the risk of delaying the surgery or procedure or chance of getting an infection with perfect accuracy, but a joint decision was made between the patient and the surgeon/proceduralist to proceed at this time with the scheduled surgery/procedure as indicated on the consent form.
[2019-07-24] VITALS (9 sets, daily range): BP systolic 133–151; BP diastolic 82–97; PULSE 67–84; RESP 16–18; TEMP 36.1–37.5; O2SAT 92–98; BMI 38.4
--- NOTE | 2019-07-24 | EMB_PTH ---
PATIENT: ALEKS RALPH LOC: [facility] [place] U#:[id number] AGE/SX: 63/F ROOM: RE07/24/[address]: Dr. Nasra Kovacs, MDDOB: 1955 BED: DIS: 07/24/2019 SPEC #: [id number] RECD: 07/24/19 13:31 STATUS: FELY BRANDI #: [id number] MALORIE: 07/24/19 00:[address]: Nasra Kovacs DEPT: SURGICAL PATHOLOGY RECD BY: Louie Keith ENTERED: 07/24/19 13:32 SP TYPE: ENDOM BX/C TONIA DR: Dr. Edgar Christianson MD Tissues: Endometrium, NOS Procedures: Surgery Specimen Level IV HEADER OPERATION: Hysteroscopy, Symphion D & C PRE-OP DIAGNOSIS: Persistent PMB, endometrial mass TISSUE SUBMITTED: Endometrial curettings and polyp tissue MICROSCOPIC DIAGNOSIS Endometrial curettings and polyp tissue: Fragments of mixed benign endometrial and endocervical polyp. Superficial fragments of benign endometrial tissue. Fragments of myometrial tissue. FADY:kindra 07/25/19 MICROSCOPIC DESCRIPTION Slides are reviewed. GROSS DESCRIPTION Received in fixative is one container labeled with the patient's name and designated endometrial curettings and polyp tissue. The specimen consists of multiple fragments of chaudhry-pink to hemorrhagic soft tissue that in aggregate measure 2.5 x 1 x 0.2 cm. The specimen is totally submitted in one cassette. / FADY:kindra 07/24/19 TC:5 CPT: 94287
[2019-07-24] MEDS: Lactated Ringers 1,000 ML 100 ML IV (08:26)
[2019-07-24 08:36] LABS: Hematocrit 43.5 % (37-47); Hemoglobin 14.3 g/dL (12.0-15.0); Mean Corp Hgb Conc 32.9 g/dL (32-36); Mean Corpuscular Hgb 32.6 pg (27.0-32.0); Mean Corpuscular Volume 99.3 fL (81-99); Mean Platelet Vol. 8.8 fl (6.2-12.0); Platelet Count 216 K/mm3 (150-450); RBC Distribution Width SD 47.4 fl (35.1-43.9); Red Blood Count 4.38 M/mm3 (4.2-5.4); White Blood Count 6.9 K/mm3 (4.4-11.0)
[2019-07-24 08:52] LABS: Anion Gap 7 (5-15); BUN 17 mg/dL (7-18); BUN/Creat Ratio 27.9 RATIO (10-20); Calcium,Total 8.7 mg/dL (8.5-10.1); Chloride 106 mmol/L (98-107); Creatinine, Serum 0.61 mg/dL (0.55-1.02); EST Glomerular Filtration Rate 106 mL/min (>60); Est Glom Filt Rate - Afr Amer 128 mL/min (>60); Estimated Creatinine Clearance 83.63 ml/min; Glucose 104 mg/dL (74-106); Potassium 3.5 mmol/L (3.5-5.1); Sodium Level 143 mmol/L (136-145)
--- NOTE | 2019-07-24 09:38 | OP.PCM_ITS ---
Report of Operation Date of Procedure: 07/24/19 Pre-Operative Diagnosis: PMB, Endometrial polyps Post-Operative Diagnosis: same Surgery/Procedure Performed:: Hysteroscopy, D&C, Polypectomy Description of Surgical Findings:: multiple endometrial polyps noted lane attendant: none Type of Anesthesia:: MAC Special Medications: none Specimen's removed: endometrial polyps Drains: none Estimated Blood Loss (mL): <5cc Fluids Replaced: 700 Description of Procedure: Informed consent was obtained the patient was taken the operating room she was placed in supine position. She was given anesthesia. She was then placed in the [facility] where she was prepped and draped in the normal sterile fashion. At this time the weighted speculum was placed in the posterior fornix of vagina. Single-tooth tenaculum was used to gently grasp the anterior lip the cervix. At this time the uterine cavity was sounded to approximately 8 cm. Gentle dilatation was performed once adequate dilatation of the cervix was achieved the hysteroscope using normal saline as a distention medium was placed. Multiple polypoid structures were appreciated. Tubal ostia visualized. At this time the symphion was used to remove the polyps under direct visualization. All polyps were removed completely. The rest of the endometrium appeared to be atrophic. This will be sent to pathology for evaluation. Procedure was deemed complete successful there are no complications. Tenaculum was removed good hemostasis was appreciated. Anticipated normal postoperative course. Instrument lap count correct ?2. Fluid deficit 50cc. Vaginal Sweep was negative. - Complications none - Admit VTE Documentation VTE Present on Admission: Yes VTE Mechan Device Prophylaxis: SCD's VTE Pharm Prophylaxis ordered?: No
--- NOTE | 2019-07-24 09:45 | DCINST_ITS ---
Discharge Diet: No Restrictions Discharge Activity: Return to Normal Activity, May Shower, May Take a Tub Bath - in 2 weeks. Allergies/Adverse Reactions: Allergies latex Allergy (Mild, Verified 07/24/19 08:04) ALLERGY MYCINS Adverse Reaction (Uncoded 07/24/19 08:04) Other YEAST INFECTIONS Medications to take at Discharge Atorvastatin Calcium [Lipitor] 10 mg PO QHS 03/23/15 Lisinopril/Hydrochlorothiazide [Lisinopril-Hctz 20-25 mg Tab] 1 tab PO QHS 03/23/15 diltiazem HCl 180 mg capsule,extended release 24 hr 180 mg PO QHS 02/12/18 L.acidoph,Paracasei, B.lactis [Probiotic] 1 ea PO QHS 04/23/18 cholecalciferol (vitamin D3) 25 mcg (1,000 unit) capsule 1,000 unit PO QHS 07/03/18 mecobalamin (vitamin B12) 1,000 mcg disintegrating tablet,sublingual 1,000 mcg SUBLINGUAL QHS 07/03/18 Acetaminophen [Tylenol Arthritis] 1,300 mg PO DAILY 07/17/19 Echinacea 400 mg PO QHS 07/17/19 Glucosamine/D3/Boswellia Ashlee [Osteo Bi-Flex Tablet] 1 ea PO DAILY 07/17/19 Loratadine [Claritin] 10 mg PO QHS 07/17/19 Primary Care Physician: Edgar Christianson MD [Primary Care Provider] - Test Results: Test results from this visit will be discussed in further detail at your follow- up appointment, if applicable. Please Follow Up With: Nasra Kovacs MD When: as scheduled
== END 2019-07-24 11:05 | disposition home or self-care (01) ==
LOC: SDC 07:50 → AC 07:51
PROVIDERS: Anesthesiology; PCP Family Medicine; Referring Provider Obstetrics & Gynecology; Visit Provider Obstetrics & Gynecology
PROC: 0UB98ZZ Excision of Uterus, Via Natural or Artificial Opening Endoscopic (ICD-10-PCS; CPT 58558; principal; 2019-07-24 09:20)
DX: N84.0 Polyp of corpus uteri (principal); N81.2 Incomplete uterovaginal prolapse; N95.0 Postmenopausal bleeding; Z11.59 Encounter for screening for other viral diseases; I10 Essential (primary) hypertension; E78.00 Pure hypercholesterolemia, unspecified; Z79.899 Other long term (current) drug therapy
CPT/HCPCS: 58558; 36415; 80048; 85027; 87635; 88305; G2023; J7120; J2405; U0003

== ENCOUNTER 2019-09-29 08:17 | Day surgery (SDC) | payer BC, SELFPAY ==
[2019-07-24 08:20] VITALS: BMI 38.4
[2019-09-29] VITALS (7 sets, daily range): BP systolic 96–139; BP diastolic 61–83; PULSE 56–74; RESP 16; TEMP 35.9–36.7; O2SAT 92–97; BMI 37.7
[2019-09-29] MEDS: Lactated Ringers 1,000 ML 100 ML IV (08:51)
--- NOTE | 2019-09-29 09:25 | H&P.OPEN ---
History of Present Illness Date of Admission: 09/29/19 The patient is a 64 year old F who presents for screening colonoscopy. Past Medical/Surgical History - Planned Operation Planned Operative Procedure/s: colonoscopy Date of Operative Procedure: 09/29/19 S.O.S: No Is This Patient Having a Total Joint: No - Previous Hospitalizations/Surgeries HX Hospitalizations: No HX of Surgeries: LEFT TKR 2012. APPENDECTOMY. TONSILLECTOMY CHILD. CSECTION 1990/TUBAL LIGATION. COLONOSCOPY. RIGHT TKR. 2018 breast reduction. 2019 hysteroscopy [facility]/ 07/24/2019 hysteroscopy [facility] Any Problems With Anesthesia: No You/Your Family Experience Fever (Hyperthermia) With Anes: No Cholinesterase deficiency: No - Cardiovascular Hx Chest Pain within Last 2 months: No Hx of Irregular Heartbeat and/or Afib: No Hx Heart Attack: No Hx Congestive Heart Failure: No Hx Rheumatic Fever: No Hx Hypertension: Yes - CONTROLLED WITH MED Hx Internal Defibrillator: No Hx Pacemaker: No Hx Cardiac Catheterization: No Hx Cardiac Surgery/Stents/Etc.: No Hx Stress Test: Yes - OVER 5 YRS AGO HX Edema: No Hx Pain in Legs when Walking/Leg Cramps: No - Respiratory Chronic Cough: No HX of Shortness of Breath: Yes - SLIGHTLY SOB WITH 2 FLIGHTS OF STAIRS Hoarseness: No Hx Chronic Obstructive Pulmonary Disease (COPD): No Hx Asthma: No Hx Emphysema: No Hx Sleep Apnea: No Hx Oxygen Use at Home: No Hx Respiratory Tract Infection/Cold (presently): No Do You Snore Loudly (louder than talking or can be heard): No Do You Often Feel Tired/ Fatigued/ Sleepy Dring Daytime?: No Has Anyone Observed You Stop Breathing During Sleep?: No Result (for STOP score): Negative Hx Smoking: No Smoking Status: Never smoker - Gastrointestinal Hx Gastroesophageal Reflux: No Hx Gastrointestinal Disorders: No Hx Gastrointestinal Bleed: No Hx Ulcer: No Hx Hiatal Hernia: No Difficulty Chewing/Swallowing: No Recent Onset of Swallowing Problems: No Special diet followed at home: No Hx Unplanned Weight Loss of 20#: No HX Unplanned Weight Gain of 20#: No - Neurological Hx Seizures: No HX Syncope/Blackout Spells/Unconsciousness: No Hx CVA/Stroke: No Hx Transient Ischemic Attacks (TIA): No Hx Multiple Sclerosis: No Hx Parkinson's Disease: No Hx Head/Neck Injury: No Hx Headaches: No Hx Back Injury/Pain: Yes - LOWER BACK INJURY MANY YRS AGO/OCC PAIN Recent Onset of Speech Difficulty: No Restless Legs: No Does patient have nerve stimulator: No - Blood Disorder Hx Leukemia: No Bleeding Tendencies: Yes - BRUISES EASILY Hx Deep Vein Thrombosis: No Hx High Cholesterol: Yes - ON MED Blood Transmitted Disease: No Hx Hepatitis: No Hx Cirrhosis: No Hx Anemia: No Hx Blood Disorders: No - Reproduction Is Patient Lactating: No Hx Hysterectomy: No Hx Tubal Ligation: Yes Are You Post Menopause: Yes - Genitourinary Hx Renal Disease: No - Musculoskeletal Hx Arthritis: Yes Hx Rheumatoid Arthritis: No Hx Gout: No Recent Onset of an Orthopedic Problem: No - Endocrine Hx Diabetes: No Thyroid Disease: No Hx Steroid Therapy: Yes - cortisone inj in hand and foot 06/2019 - Psycho/Social Hx Substance Use: No Hx Alcohol Use: No Hx Anxiety: No Hx Depression: No Mental Illness: No Hx Dementia: No - Miscellaneous Hx Cancer: No Recent Exposure to Contagious Disease: No Active MRSA: No Hx of C-Diff: No Any Loose Teeth: No Allergies latex Allergy (Mild, Verified 09/29/19 08:38) ALLERGY MYCINS Adverse Reaction (Uncoded 09/29/19 08:38) Other YEAST INFECTIONS - Discharge Is Pt Admitted From a Assisted, or a Senior Care: No Who Could Help: friend,Vivian After D/C, Where Do you Plan to Go: Return Home - From the PAT History Number of Risk Factors: 1 - Physical Exam Vitals/I&O's: Vital Signs Temp Pulse Resp BP Pulse Ox 98.1 F 56 L 16 139/83 H 97 09/29/19 08:48 09/29/19 08:48 09/29/19 08:48 09/29/19 08:48 09/29/19 08:48 Oxygen Delivery Method Room Air Weight: 219 lb 12.814 oz Body Mass Index (BMI) 37.7 Lungs: Clear to auscultation Cardiovascular: Regular rate, Regular Rhythm, No murmurs Abdomen: Bowel Sounds Present, Soft, Non Tender, Non-Distended Current Medications Lactated Ringer's () 1,000 mls @ 100 mls/hr IV .Q10H SIGRID Last Admin: 09/29/19 08:51 Dose: 100 mls/hr Documented by: Assessment/Plan All Active Problems (Last Reviewed 07/12/18 @ 08:21 by Mariposa Guajardo) Seasonal allergies (Acute) Arthritis (Acute) Gallstones (Acute) Nonhealing surgical wound (Acute) Recent weight loss (Acute) Assessment: Screening colonoscopy Plan: To perform a colonoscopy Procedure Criteria Procedure Type: Elective COVID Risk Discussion: The surgeon/proceduralist and patient have discussed in detail the risk of exposure to and/or potential harm posed by the COVID-19 virus with having a surgery/procedure at this time versus the risk of delaying the surgery/procedure. It is not possible to know either the risk of delaying the surgery or procedure or chance of getting an infection with perfect accuracy, but a joint decision was made between the patient and the surgeon/proceduralist to proceed at this time with the scheduled surgery/procedure as indicated on the consent form. Surgery Risks - Colonoscopy Risks Include but are not Limited To: Risks include but are not limited to: Bleeding, perforation requiring further surgery, inability to complete colonoscopy requiring barium enema.
--- NOTE | 2019-09-29 09:46 | OP.COLON_ITS ---
Patient Name: Crystal Matthew Procedure Date: 09/29/2019 9:22 AM Date of : 1955 Age: 64 Procedure: Colonoscopy Indications: Screening for colorectal malignant neoplasm Providers: Manolo Manzanares MD Referring MD: Edgar Christianson Md Medicines: See the Anesthesia note for documentation of the administered medications Patient Profile: This is a 64 year old female. Refer to note in patient chart for documentation of history and physical. Last Colonoscopy: 10 years ago. Complications: No immediate complications. Procedure: Pre-Anesthesia Assessment: - Prior to the procedure, a History and Physical was performed, and patient medications and allergies were reviewed. The patient's tolerance of previous anesthesia was also reviewed. The risks and benefits of the procedure and the sedation options and risks were discussed with the patient. All questions were answered, and informed consent was obtained. Prior Anticoagulants: The patient has taken no previous anticoagulant or antiplatelet agents. ASA Grade Assessment: II - A patient with mild systemic disease. After reviewing the risks and benefits, the patient was deemed in satisfactory condition to undergo the procedure. After I obtained informed consent, the scope was passed under direct vision. Throughout the procedure, the patient's blood pressure, pulse, and oxygen saturations were monitored continuously. The Colonoscope was introduced through the anus and advanced to the cecum, identified by appendiceal orifice and ileocecal valve. The colonoscopy was performed without difficulty. The patient tolerated the procedure well. The quality of the bowel preparation was good. Scope In: 9:31:05 AM Scope Withdrawal Time 0 hours 6 minutes 21 seconds Scope Out: 9:43:19 AM Total Procedure Duration Time 0 hours 12 minutes 14 seconds Findings: Non-bleeding internal hemorrhoids were found during retroflexion. The hemorrhoids were moderate and medium-sized. A few small-mouthed diverticula were found in the sigmoid colon. No biopsies or other specimens were collected for this exam. The exam was otherwise without abnormality. Impression: - Non-bleeding internal hemorrhoids. - Diverticulosis in the sigmoid colon. No specimens collected. - The examination was otherwise normal. Recommendation: - Discharge patient to home. - Resume previous diet. - Continue present medications. - Repeat colonoscopy in 10 years for screening purposes. - Return to primary care physician (date not yet determined). Procedure Code(s): --- Professional --- 99656, Colonoscopy, flexible; diagnostic, including collection of specimen(s) by brushing or washing, when performed (separate procedure) Diagnosis Code(s): --- Professional --- Z12.11, Encounter for screening for malignant neoplasm of colon K64.8, Other hemorrhoids K57.30, Diverticulosis of large intestine without perforation or abscess without bleeding CPT copyright 2017 [employer]. All rights reserved. The codes documented in this report are preliminary and upon supervisor clam bed review may be revised to meet current compliance requirements. MD Manolo Razo MD 09/29/2019 9:45:52 AM This report has been signed electronically. Number of Addenda: 0 Note Initiated On: 09/29/2019 9:22 AM
--- NOTE | 2019-09-29 09:46 | OP.CCLET_ITS ---
09/29/2019 Edgar Christianson Md Re : Colonoscopy procedure for Crystal Matthew Dear Sammy This procedure was performed on Sunday, September 29, 2019. My impressions and recommendations are as follows: Impressions : - Non-bleeding internal hemorrhoids. - Diverticulosis in the sigmoid colon. No specimens collected. - The examination was otherwise normal. Recommendations : - Discharge patient to home. - Resume previous diet. - Continue present medications. - Repeat colonoscopy in 10 years for screening purposes. - Return to primary care physician (date not yet determined). My findings are described in the full procedure note, which is enclosed. If I can be of further assistance, please feel free to contact me at Doctor phone number(s): , Fax: [phone], Work: . Sincerely, MD Manolo Razo MD 09/29/2019 9:45:52 AM This report has been signed electronically.
== END 2019-09-29 10:31 | disposition home or self-care (01) ==
LOC: EN 08:20 → AC 08:21
PROVIDERS: Anesthesiology; PCP Family Medicine; Referring Provider Family Medicine; Visit Provider Surgery
PROC: 0DJD8ZZ Inspection of Lower Intestinal Tract, Via Natural or Artificial Opening Endoscopic (ICD-10-PCS; CPT 45378; principal; 2019-09-29 09:25)
DX: Z12.11 Encounter for screening for malignant neoplasm of colon (principal); K57.30 Diverticulosis of large intestine without perforation or abscess without bleeding; K64.8 Other hemorrhoids; E78.00 Pure hypercholesterolemia, unspecified; Z11.59 Encounter for screening for other viral diseases; Z79.899 Other long term (current) drug therapy
CPT/HCPCS: 45378; 87635; 94799; J7120; J1610; J2405; U0003

== ENCOUNTER → 2019-10-14 | Outpatient (CLI) | payer BC, SELFPAY ==
[2019-09-29 08:48] VITALS: BMI 37.7
== END | disposition home or self-care (01) ==
LOC: MFPLAB 10:53 → LABSPEC 10:54
PROVIDERS: PCP Family Medicine; Referring Provider Family Medicine; Visit Provider Family Medicine
DX: B34.9 Viral infection, unspecified (principal)
CPT/HCPCS: 87635; U0003

== ENCOUNTER → 2020-07-26 07:07 | Outpatient (CLI) | payer BC, SELFPAY ==
[2019-09-29 08:48] VITALS: BMI 37.7
[2020-07-26 10:40] LABS: Anion Gap 7 (5-15); BUN 19 mg/dL (7-18); BUN/Creat Ratio 27.5 RATIO (10-20); Calcium,Total 8.4 mg/dL (8.5-10.1); Chloride 106 mmol/L (98-107); Cholesterol 191 mg/dL (200); Creatinine, Serum 0.69 mg/dL (0.55-1.02); EST Glomerular Filtration Rate 91 mL/min (>60); Est Glom Filt Rate - Afr Amer 111 mL/min (>60); Glucose 108 mg/dL (74-106); High Density Lipoprotein 66 mg/dL; Potassium 3.8 mmol/L (3.5-5.1); Sodium Level 143 mmol/L (136-145); Triglycerides 97 mg/dL; Very Low Density Lipoprotein 19 mg/dL (5-40)
[2020-07-26 11:03] LABS: Hemoglobin A1c 5.5 % (3.8-5.6)
== END ==
PROVIDERS: PCP Family Medicine; Referring Provider Family Medicine; Visit Provider Family Medicine
DX: R73.01 Impaired fasting glucose (principal); E78.00 Pure hypercholesterolemia, unspecified
CPT/HCPCS: 36415; 80048; 80061; 83036

== ENCOUNTER 2021-02-23 07:32 | Outpatient (CLI) | payer BC, SELFPAY | END 2021-02-23 23:59 | disposition short-term general hospital (02) | LOC: LABSPEC 02-24 07:34 | PROVIDERS: PCP Family Medicine; Referring Provider Nurse Practitioner Family; Visit Provider Nurse Practitioner Family | DX: Z20.822 Contact with and (suspected) exposure to COVID-19 (principal) | CPT/HCPCS: 87635; U0003; U0005 ==

== ENCOUNTER → 2021-11-17 | Outpatient (CLI) | payer BC, SELFPAY ==
[2021-11-17 10:53] LABS: ALB/GLOB Ratio 0.9 RATIO (0.9-2.4); AST(SGOT) 21 U/L (15-37); Alanine Aminotransfer ALT/SGPT 28 U/L (13-56); Albumin, Serum 3.2 g/dL (3.2-5.0); Alkaline Phosphatase 110 U/L (45-117); Anion Gap 8 (5-15); BUN 17 mg/dL (7-18); BUN/Creat Ratio 23.5 RATIO (10-20); Calcium,Total 8.5 mg/dL (8.5-10.1); Chloride 107 mmol/L (98-107); Cholesterol 217 mg/dL (200); Creatinine, Serum 0.72 mg/dL (0.55-1.02); EST Glomerular Filtration Rate 86 mL/min (>60); Est Glom Filt Rate - Afr Amer 104 mL/min (>60); Globulin 3.4 g/dL (2.2-4.2); Glucose 122 mg/dL (74-106); High Density Lipoprotein 61 mg/dL; Potassium 3.6 mmol/L (3.5-5.1); Protein, Total 6.6 g/dL (6.4-8.2); Sodium Level 142 mmol/L (136-145); Triglycerides 146 mg/dL; Very Low Density Lipoprotein 29 mg/dL (5-40)
[2021-11-17 11:20] LABS: Microalbumin:Creatinine Ratio 17.8 mg/g CRE (<30 mg/g CRE)
== END | disposition home or self-care (01) ==
LOC: MTLAB 07:04
PROVIDERS: PCP Family Medicine; Referring Provider Family Medicine; Visit Provider Family Medicine
DX: I10 Essential (primary) hypertension (principal); E78.00 Pure hypercholesterolemia, unspecified
CPT/HCPCS: 36415; 80053; 80061; 82043; 82570

== ENCOUNTER → 2023-02-12 | Outpatient (CLI) | payer MEDICARE, OTHER, SELFPAY ==
[2023-02-12 10:49] LABS: Microalbumin:Creatinine Ratio 47.4 mg/g CRE (<30 mg/g CRE)
[2023-02-12 11:14] LABS: ALB/GLOB Ratio 0.9 RATIO (0.9-2.4); AST(SGOT) 22 U/L (15-37); Alanine Aminotransfer ALT/SGPT 27 U/L (13-56); Albumin, Serum 3.3 g/dL (3.2-5.0); Alkaline Phosphatase 106 U/L (45-117); Anion Gap 6 (5-15); BUN 17 mg/dL (7-18); Calcium,Total 9.7 mg/dL (8.5-10.1); Chloride 110 mmol/L (98-107); Cholesterol 255 mg/dL (200); Creatinine, Serum 0.68 mg/dL (0.55-1.02); EST Glomerular Filtration Rate 92 mL/min (>60); Est Glom Filt Rate - Afr Amer 111 mL/min (>60); Globulin 3.5 g/dL (2.2-4.2); Glucose 144 mg/dL (74-106); High Density Lipoprotein 66 mg/dL; Potassium 3.9 mmol/L (3.5-5.1); Protein, Total 6.8 g/dL (6.4-8.2); Sodium Level 142 mmol/L (136-145); Triglycerides 129 mg/dL; Very Low Density Lipoprotein 26 mg/dL (5-40)
[2023-02-12 11:44] LABS: Hemoglobin A1c 5.6 % (3.8-5.6)
== END | disposition home or self-care (01) ==
LOC: MTLAB 08:08
PROVIDERS: PCP Family Medicine; Referring Provider Family Medicine; Visit Provider Family Medicine
DX: R73.09 Other abnormal glucose (principal); E78.00 Pure hypercholesterolemia, unspecified; I10 Essential (primary) hypertension
CPT/HCPCS: 36415; 80053; 80061; 82043; 82570; 83036

== ENCOUNTER → 2024-05-08 | Outpatient (CLI) | payer MEDICARE, OTHER, SELFPAY ==
--- NOTE | 2024-05-08 10:51 | BD_ITS ---
PROCEDURE: DEXA BONE DENSITY STUDY 05/08/2024 REASON FOR EXAM: F, age 68 y/o . Postmenopausal. TECHNIQUE: DXA scan of the lumbar spine and both hips, using make and model. REFERENCE LINKS: IS[facility] Adult Positions COMPARISON: None FINDINGS: BMD and T-SCORES Lumbar spine: 0.967 g/cm2, T-Score -1.2 L1 through L4 Left femoral neck: 0.932 g/cm2, T-Score 0.7 Femoral neck comparison data not recommended for monitoring change. Left total hip: 1.05 cm g/cm2, T-Score 0.9 Right femoral neck: 0.882 g/cm2, T-Score 0.3 Femoral neck comparison data not recommended for monitoring change. Right total hip: 1.090 g/cm2, T-Score 1.2 Fracture Risk Calculation: FRAX (10-year Fracture Risk) Score: FRAX scores should never be reported in a patient with osteoporosis on DEXA or for any patient that is on bone medication. The patient doesmeet the pharmacological treatment recommendations for prevention of osteoporosis BD/Dexa Bone Density Study IMPRESSION: OSTEOPENIA. Recommend follow-up as clinically warranted. Reading Location: [place] [id number]
== END | disposition home or self-care (01) ==
LOC: OPBD 10:49
PROVIDERS: PCP Family Medicine
DX: Z13.820 Encounter for screening for osteoporosis (principal); Z78.0 Asymptomatic menopausal state
CPT/HCPCS: 77080

== ENCOUNTER → 2024-07-24 | Outpatient (CLI) | payer MEDICARE, OTHER, SELFPAY ==
--- NOTE | 2024-07-24 10:35 | RAD_ITS ---
PROCEDURE: SHOULDER MIN 2 VIEWS 07/24/2024 REASON FOR EXAM: PAIN TECHNIQUE: SHOULDER MIN 2 VIEWS COMPARISON: None. FINDINGS: Mild osteopenia of the visualized bones. Degenerative joint disease. No fracture or dislocation is seen. No lytic or blastic bone lesion is noted. RAD/Shoulder min 2 Views IMPRESSION: No evidence for acute abnormality. Reading Location[facility]
== END | disposition home or self-care (01) ==
LOC: MTRAD 10:34
PROVIDERS: PCP Family Medicine; Referring Provider Family Medicine; Visit Provider Family Medicine
DX: M25.512 Pain in left shoulder (principal)
CPT/HCPCS: 73030